=== PATIENT | female | born 1980 | race Caucasian/White ===

== ENCOUNTER 2018-11-02 04:14 | Inpatient (IN) | payer MEDICAID, OTHER ==
[2018-11-02] MEDS ORDERED: MINERAL OIL PO PRN (04:23)
[2018-11-02] MEDS ORDERED: BRETHINE IVP PRN (04:23)
[2018-11-02] MEDS ORDERED: BRETHINE SUB-Q PRN (04:23)
[2018-11-02] MEDS ORDERED: AMPICILLIN/NS 2 GM/100 ML 2 GM/100 ML BAG IV ONE ×2 (04:23→04:31)
[2018-11-02] MEDS ORDERED: XYLOCAINE 2% INFILTRATI ONE (04:23)
[2018-11-02] MEDS ORDERED: PITOCin/NS 20 UNIT/1000ML DRIP 20,000 MILLIUNITS/1,000 ML BAG IV ONE (04:31)
[2018-11-02] MEDS ORDERED: PITOCin/NS 20 UNIT/1000ML DRIP 20 UNITS/1,000 ML BAG IV SCH (05:00)
[2018-11-02] MEDS ORDERED: LACTATED RINGERS 1,000 ML IV SCH (05:00)
[2018-11-02] MEDS ORDERED: PHENERGAN PO PRN (06:00)
[2018-11-02] MEDS ORDERED: DULCOLAX PR PRN (06:00)
[2018-11-02] MEDS ORDERED: BENADRYL PO PRN (06:00)
[2018-11-02] MEDS ORDERED: ZOFRAN IV PRN (06:00)
[2018-11-02] MEDS ORDERED: NORCO 5/325 PO PRN (06:00)
[2018-11-02] MEDS ORDERED: MILK OF MAGNESIA PO PRN (06:00)
[2018-11-02] MEDS ORDERED: TUCKS PAD TP PRN (06:00)
[2018-11-02] MEDS ORDERED: SODIUM CHLORIDE FLUSH SYRINGE 10 ML IV NR (06:00)
[2018-11-02] MEDS ORDERED: LANSINOH TP PRN (06:00)
[2018-11-02] MEDS ORDERED: TYLENOL PO PRN (06:00)
--- NOTE | 2018-11-02 06:08 | Procedure Note ---
OB Delivery Note - Delivery Date of Delivery: 11/02/18 (05:12) Surgeon: GATITO GARCIA (CLIFFORD) Estimated blood loss: 100cc - Vaginal Delivery presentation: vertex Delivery position: OA Intrapartum events: none, precipitous labor- <3hr Delivery induction: none Delivery monitor: external FHT, external uterine Route of delivery: (05:12) Delivery placenta: spontaneous (05:17) Delivery cord: 3 umbilical vessels Episiotomy: none Delivery laceration: none Anesthesia: none Delivery comments: Viable male infant ARON position over intact perineum at 05:12. Vigorous placed [id number] on maternal abdomen. Delayed cord clamping; then cut by FOB with my guidance. Cord blood collected per protocol. Spontaneous forbes delivery of intact placenta at 05:17. 3VC. Placenta discarded. No tears or lacerations. FF@U-2. Anterior fibroid palpated. EBL 100cc. and mother left in stable condition in L&D. - A at 1 minute: 9 at 5 minutes: 9 Infant Gender: Male (6lbs 10oz, 3006 grams, 19.5")
--- NOTE | 2018-11-02 06:13 | History and Physical Report ---
History of Present Illness Date of examination: 11/02/18 Date of admission: 11/02/18 04:23 Chief complaint: Intense labor pains History of present illness: 37 yo Fe , CONI 11/17/2018 (LMP), 37w6d presents in active labor. Pt initiated early oprenatal care with [facility] at 9w4d. 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 denies: abnormal PAP smear, chlamydia, gonorrhea, hepatitis B, hepatitis C, HIV, syphilis, trichomonas Family/Genetic History: hypertension (Father), cancer (father; stomach) Social history: no significant social history, , lives with family, full code. denies: smoking, alcohol abuse, prescription drug abuse, IV drug use - Obstetrical History Expected Date of Delivery: 11/17/18 Actual Gestation: 37 Week(s) 6 Day(s) : 5 Para: 3 Hx # Term Pregnancies: 3 Number of Pregnancies: 0 Spontaneous Abortions: 1 Induced : 0 Number of Living Children: 3 Medications and Allergies Allergies Allergy/AdvReac Type Severity Reaction Status Date / Time No Known Allergies Allergy Verified 11/02/18 04:22 Active Meds: Active Medications Acetaminophen (Tylenol) 650 mg PO Q4H PRN PRN Reason: Pain MILD(1-3)/Fever >100.5/SMITH Acetaminophen/Hydrocodone Bitart ([place] 5/325) 2 each PO Q6H PRN PRN Reason: Pain, Moderate (4-6) Bisacodyl (Dulcolax) 10 mg WA BID PRN PRN Reason: Constipation Diphenhydramine HCl (Benadryl) 25 mg PO Q6H PRN PRN Reason: Itching Ephedrine Sulfate (Ephedrine Sulfate) 10 mg IV Q2M PRN PRN Reason: Hypotension Ampicillin Sodium (Ampicillin/Ns 1 Gm/50 Ml) 1 gm in 50 mls @ 100 mls/hr IV Q4HR OMARI; Protocol Lactated Ringer's (Lactated Ringers) 1,000 mls @ 125 mls/hr IV DIRECT OMARI Last Admin: 11/02/18 04:46 Dose: 125 mls/hr Documented by: Oxytocin/Sodium Chloride (Pitocin/Ns 20 Unit/1000ml Drip) 20 units in 1,000 mls @ 125 mls/hr IV DIRECT OMARI Ibuprofen (Motrin) 600 mg PO Q6H OMARI Magnesium Hydroxide (Milk Of Magnesia) 30 ml PO HS PRN PRN Reason: Constipation Mineral Oil (Mineral Oil) 30 ml PO QHS PRN PRN Reason: Constipation Multi-Ingredient Ointment (Lansinoh) 1 applic TP PRN PRN PRN Reason: Sore Nipples Ondansetron HCl (Zofran) 4 mg IV Q8H PRN PRN Reason: Nausea And Vomiting Promethazine HCl (Phenergan) 25 mg PO Q6H PRN PRN Reason: Nausea And Vomiting Sodium Chloride (Sodium Chloride Flush Syringe 10 Ml) 10 ml IV PRN NR Terbutaline Sulfate (Brethine) 0.25 mg SUB-Q ONCE PRN PRN Reason: Hyperstimulation/Hypertonicity Terbutaline Sulfate (Brethine) 0.25 mg IVP ONCE PRN PRN Reason: Hyperstimulation/Hypertonicity Witch Sharla/Glycerin (Tucks Pad) 1 each TP PRN PRN PRN Reason: Hemorrhoid/cleansing/soothing Review of Systems Eyes: normal appearance Cardiovascular: no chest pain, no shortness of breath Respiratory: no shortness of breath Breasts: normal Gastrointestinal: abdominal pain, no nausea, no vomiting, no diarrhea Genitourinary: normal appearance, contractions, no leakage of fluid, no genital sores Integumentary: no rash, no sores, no lesions - Vital Signs Vital signs: Vital Signs Pulse BP 78 106/52 11/02/18 05:29 11/02/18 05:29 Temp Pulse Resp BP Pulse Ox 97.8 F 85 16 117/69 11/02/18 05:38 11/02/18 05:59 11/02/18 05:38 11/02/18 05:59 - Physical Exam Breasts: Positive: normal Cardiovascular: Regular rate, Normal S1, Normal S2, No murmurs Lungs: Positive: Clear to auscultation, Normal air movement Abdomen: Positive: normal appearance, soft, normal bowel sounds. Negative: distention Genitourinary (Female): Positive: normal external genitalia, normal perenium Vulva: both: normal Vagina: Positive: normal moisture Uterus: Positive: enlarged (Graavid) Anus/Rectum: Positive: normal perianal skin Extremities: Positive: normal Deep Tendon Reflex Grade: Normal +2 - Obstetrical FHR: auscultation normal, category 1 Uterine Contraction Monitor Mode: External Cervical Dilatation: 10 Cervical Effacement Percentage: 100 station: +1 Uterine Contraction Frequency (min): 2-3 Uterine Contraction Pattern: Regular Uterine Tone Measurement Phase: Resting Uterine Contraction Intensity: Strong/Firm Results Result Diagrams: 11/02/18 05:00 All other labs normal. Assessment and Plan A:Term IUP in active labor Category 1 tracing GBS Positive P: Admit to L&D; Routine labor orders GBS prophylaxis Anticipate
[2018-11-02 06:58] LABS: Hemoglobin 13.7 gm/dl (10.1-14.3); Mean Corpuscular HGB Conc 34 % (30-34); Mean Corpuscular Volume 85 fl (79-97); Platelet Count 282 K/mm3 (140-440); Red Blood Count 4.84 M/mm3 (3.65-5.03); Red Cell Distribution Width 15.8 % (13.2-15.2)
[2018-11-02] MEDS: IBUPROFEN PO SCH ×2 (07:01→17:00)
[2018-11-02] MEDS ORDERED: AMPICILLIN/NS 1 GM/50 ML 1 GM/50 ML BAG IV SCH (08:23)
[2018-11-02 18:38] LABS: Hematocrit 37.6 % (30.3-42.9); Hemoglobin 12.5 gm/dl (10.1-14.3)
[2018-11-03] MEDS: IBUPROFEN PO SCH ×3 (00:02→13:29)
--- NOTE | 2018-11-03 17:23 | Progress Note ---
Assessment and Plan A: day 1 S/P spontaneous vaginal delivery. P: Continue current management. Anticipate discharge home tomorrow. Subjective - Subjective Date of service: 11/03/18 Principal diagnosis: day 1 S/P spontaneous vaginal delivery Interval history: day 1 S/P spontaneous vaginal delivery. Doing well. Patient is voiding without difficulty, ambulating well, tolerating a regular diet without nausea or vomiting. Patient denies chest pain, cough, shortness of breath, headache, leg pain, abdominal pain, heavy bleeding, or any other problems. Patient reports: appetite normal, voiding normally, pain well controlled, flatus, ambulating normally, no dizzy ambulation, no nauseated [place]: doing well Objective - Vital Signs Latest vital signs: Vital Signs Temp Pulse Resp BP Pulse Ox 11/03/18 13:29 18 11/03/18 08:37 97.6 F 66 16 100/60 96 11/03/18 00:59 98.1 F 77 20 106/61 95 Intake and Output 11/03/18 11/03/18 11/03/18 07:59 15:59 23:59 Intake Total 240 600 Balance 240 600 Intake: Oral 240 600 Other: Total, Intake Amount 120 240 # Voids Void 1 1 # Bowel Movements 1 - Exam Cardiovascular: Present: Regular rate, Normal S1, Normal S2, No murmurs Lungs: Present: Clear to auscultation Abdomen: Present: normal appearance, soft, normal bowel sounds. Absent: distention, tenderness, guarding, rigidity Uterus: Present: normal, fundal height below umbilicus. Absent: bogginess, tenderness Extremities: Present: normal. Absent: tenderness, edema
[2018-11-04] MEDS: IBUPROFEN PO SCH ×2 (01:24→06:25)
--- NOTE | 2018-11-04 10:19 | Progress Note ---
Assessment and Plan A: day 2 S/P spontaneous vaginal delivery. P: Discharge patient home today. discharge instructions and warning signs discussed with patient. Advised patient to avoid lifting, heavy housework, intercourse. Advised patient to follow up at OB clinic in 6 weeks; advised her she needs to call to make appointment. Patient voiced understanding of instructions. Subjective - Subjective Date of service: 11/04/18 Principal diagnosis: day 2 S/P spontaneous vaginal delivery Interval history: day 2 S/P spontaneous vaginal delivery. Doing well. Patient desires discharge today. Patient is voiding without difficulty, ambulating well, tolerating a regular diet without nausea or vomiting. Patient denies chest pain, cough, shortness of breath, headache, leg pain, abdominal pain, heavy bleeding, or any other problems. Patient reports: appetite normal, pain well controlled, flatus, ambulating normally, no dizzy ambulation, no nauseated : doing well Objective - Vital Signs Latest vital signs: Vital Signs Temp Pulse Resp BP Pulse Ox 11/04/18 07:26 98.0 F 75 16 106/69 95 11/04/18 01:34 97.9 F 90 18 116/67 98 11/03/18 18:55 98.3 F 90 20 109/68 97 11/03/18 13:29 18 Intake and Output 11/03/18 11/04/18 11/04/18 23:59 07:59 15:59 Intake Total 120 240 Balance 120 240 Intake: Oral 120 240 Other: Total, Intake Amount 120 120 # Voids Void 1 1 - Exam Cardiovascular: Present: Regular rate, Normal S1, Normal S2 Lungs: Present: Clear to auscultation Abdomen: Present: normal appearance, soft. Absent: distention, tenderness, guarding, rigidity Uterus: Present: normal, firm, fundal height below umbilicus. Absent: bogginess, tenderness Extremities: Present: normal, edema (mild pedal edema bilaterally). Absent: tenderness
--- NOTE | 2018-11-04 10:21 | Discharge Summary ---
Providers - Providers Date of Admission: 11/02/18 04:23 Date of discharge: 11/04/18 Attending physician: PRAKASH MUÑIZ MD None Primary care physician: PRAKASH MUÑIZ MD Hospitalization Reason for admission: active labor Delivery: Episiotomy: none Laceration: none Other procedures: none complications: none Discharge diagnosis: IUP at term delivered baby: male Pertinent studies: Labs Hospital course: Normal hospital course. Condition at discharge: Good Disposition: DC-01 TO HOME OR SELFCARE - Discharge Diagnoses (1) Term delivered Status: Acute Plan - Provider Discharge Summary Activity: routine, no sex for 6 weeks, no heavy lifting 4 weeks, no strenuous exercise Diet: routine Instructions: routine Additional instructions: Call your doctor immediately for: * Fever > 100.5 * Heavy vaginal bleeding ( >1 pad per hour) * Severe persistent headache * Shortness of breath * Reddened, hot, painful area to leg or breast - Follow up plan Follow up: PRAKASH MUÑIZ MD [Primary Care Provider] - 6 Weeks
[2018-11-04 15:27] VITALS: BP 122/75
== END 2018-11-04 15:27 | disposition home or self-care (01) | DRG 806 ==
LOC: TRG 04:14 → LD 04:23 → OB 06:47
PROVIDERS: ADMIT Obstetrics & Gynecology; ATTEND Obstetrics & Gynecology
PROC: 10E0XZZ Delivery of Products of Conception, External Approach (ICD-10-PCS; principal; 2018-11-02)
DX: O62.3 Precipitate labor (principal); O98.52 Other viral diseases complicating childbirth; Z37.0 Single live birth; O99.824 Streptococcus B carrier state complicating childbirth; B00.9 Herpesviral infection, unspecified; Z3A.37 37 weeks gestation of pregnancy; Z82.49 Family history of ischemic heart disease and other diseases of the circulatory system; Z85.028 Personal history of other malignant neoplasm of stomach
CPT/HCPCS: 36415; 85014; 85018; 85027; 86592; 86850; 86900; 86901; G0378; J0290; J2590; J7120